=== PATIENT | male | born 1935 ===

== ENCOUNTER 2019-11-26 20:10 | Emergency (ER) | payer MEDICARE ==
[~2019-11-26] VITALS: Ht 165.1 cm; Wt 86.2 kg
[2019-11-26 20:59] LABS: Hematocrit 37.6 % (37.0-53.0); Hemoglobin 12.8 g/dL (13.5-17.5); Mean Corpuscular HGB 30.5 pg (26.0-34.0); Mean Corpuscular Volume 90 fL (80-100); Mean Platelet Volume 9.9 fL (9.1-12.4); Platelet Count 210 K/mm3 (150-400); RDW Coefficient Variation 12.1 % (11.7-14.2); RDW Standard Deviation 39.8 fL (35.1-46.3); Red Blood Cell Count 4.19 M/mm3 (4.30-5.90); White Blood Cell Count 8.63 K/mm3 (4.00-11.30)
[2019-11-26 21:16] LABS: Alanine Aminotransfer (ALT/SGP 72 U/L (12-78); Albumin, Blood 3.4 g/dL (3.4-5.0); Albumin/Globulin Ratio 0.6 (0.8-1.8); Alk Phos 109 U/L (50-136); Anion Gap 4 mmol/L (6-16); Aspartate Aminotrans (AST/SGOT 44 U/L (12-37); Bilirubin, Total 0.3 mg/dL (0.1-1.0); Blood Urea Nitrogen 17 mg/dL (8-24); Bun/Creatinine Ratio 14.4 (12.0-20.0); CO2, Blood 29 mmol/L (21-32); Calcium, Blood 8.4 mg/dL (8.5-10.1); Chloride, Blood 100 mmol/L (98-108); Creatinine, Blood 1.18 mg/dL (0.60-1.20); Dilantin (Phenytoin), Total 7.9 ug/mL (10.0-20.0); Globulin, Blood 5.3 g/dL (2.2-4.0); Glomerular Filtration Rate >60 (60-); Glucose, Blood 230 mg/dL (70-99); Potassium, Blood 4.5 mmol/L (3.5-5.5); Sodium, Blood 133 mmol/L (136-145); Total Protein, Blood 8.7 g/dL (6.4-8.2)
[2019-11-26 21:22] LABS: BASOPHILS PERCENT MAN 0 % (0-2); EOSINOPHILS PERCENT MAN 0 % (0-6); LYMPHOCYTES ABSOLUTE MAN 2.24 K/mm3 (0.84-5.20); LYMPHOCYTES PERCENT MAN 26 % (21-46); MONOCYTES PERCENT MAN 7 % (4-13); NEUTROPHILS ABSOLUTE MAN 5.78 K/mm3 (1.96-9.15); SEG NEUTROPHILS PERCENT MAN 67 % (41-73); TOTAL CELLS COUNTED 100
== END 2019-11-26 23:44 | disposition home or self-care (01) ==
LOC: ER 20:10
PROVIDERS: Emergency Medicine
DX: G40.909 Epilepsy, unspecified, not intractable, without status epilepticus (principal); S09.90XA Unspecified injury of head, initial encounter; W19.XXXA Unspecified fall, initial encounter
CPT/HCPCS: 36415; 70450; 80053; 80185; 85025; 99284-25

== ENCOUNTER 2020-06-17 11:50 | Emergency (ER) | payer MEDICARE ==
[~2020-06-17] VITALS: Ht 162.6 cm; Wt 81.7 kg
[2020-06-17] MEDS ORDERED: CITALOPRAM HBR40 MG PO (12:29)
[2020-06-17] MEDS ORDERED: HYDROCHLOROTH12.5 MG PO (12:29)
[2020-06-17] MEDS ORDERED: TAMSULOSIN HCL0.4 M1 PO (12:29)
[2020-06-17] MEDS ORDERED: ATORVASTATIN CA40 M1 PO (12:29)
[2020-06-17] MEDS ORDERED: AMLODIPINE BESY10 MG PO (12:30)
[2020-06-17] MEDS ORDERED: CLONAZEPAM1 MG PO (12:30)
[2020-06-17] MEDS ORDERED: PHENYTOIN SODI100 MG PO (12:30)
[2020-06-17] MEDS ORDERED: LOSA50 PO (12:30)
[2020-06-17 12:41] LABS: Alanine Aminotransfer (ALT/SGP 33 U/L (12-78); Albumin, Blood 3.9 g/dL (3.4-5.0); Albumin/Globulin Ratio 0.9 (0.8-1.8); Alk Phos 85 U/L (50-136); Anion Gap 7 mmol/L (6-16); Aspartate Aminotrans (AST/SGOT 25 U/L (12-37); Bilirubin, Total 0.5 mg/dL (0.1-1.0); Blood Urea Nitrogen 16 mg/dL (8-24); Bun/Creatinine Ratio 18.6 (12.0-20.0); CO2, Blood 24 mmol/L (21-32); Calcium, Blood 8.3 mg/dL (8.5-10.1); Chloride, Blood 105 mmol/L (98-108); Creatinine, Blood 0.86 mg/dL (0.60-1.20); Globulin, Blood 4.3 g/dL (2.2-4.0); Glomerular Filtration Rate >60 (60-); Glucose, Blood 165 mg/dL (70-99); Hematocrit 35.5 % (37.0-53.0); Hemoglobin 12.5 g/dL (13.5-17.5); Mean Corpuscular HGB 30.6 pg (26.0-34.0); Mean Corpuscular HGB Conc 35.2 g/dL (31.5-36.5); Mean Corpuscular Volume 87 fL (80-100); Potassium, Blood 4.2 mmol/L (3.5-5.5); RDW Coefficient Variation 12.8 % (11.7-14.2); Red Blood Cell Count 4.09 M/mm3 (4.30-5.90); Sodium, Blood 136 mmol/L (136-145); Total Protein, Blood 8.2 g/dL (6.4-8.2); Troponin I <0.015 ng/mL (0.000-0.040); White Blood Cell Count 7.85 K/mm3 (4.00-11.30)
[2020-06-17 12:42] LABS: Platelet Count 227 K/mm3 (150-400)
[2020-06-17 12:59] LABS: BASOPHILS ABSOLUTE MAN 0.07 K/mm3 (0.00-0.23); BASOPHILS PERCENT MAN 1 % (0-2); EOSINOPHILS ABSOLUTE MAN 0.07 K/mm3 (0.00-0.68); EOSINOPHILS PERCENT MAN 1 % (0-6); LYMPHOCYTES ABSOLUTE MAN 3.29 K/mm3 (0.84-5.20); LYMPHOCYTES PERCENT MAN 42 % (21-46); MONOCYTES ABSOLUTE MAN 1.02 K/mm3 (0.16-1.47); MONOCYTES PERCENT MAN 13 % (4-13); NEUTROPHILS ABSOLUTE MAN 3.37 K/mm3 (1.96-9.15); SEG NEUTROPHILS PERCENT MAN 43 % (41-73); TOTAL CELLS COUNTED 100
[2020-06-17] MEDS ORDERED: CODACE30 PO (15:56)
== END 2020-06-17 16:14 | disposition home or self-care (01) ==
LOC: ER 11:50
PROVIDERS: Emergency Medicine
DX: S82.61XA Displaced fracture of lateral malleolus of right fibula, initial encounter for closed fracture (principal); E11.9 Type 2 diabetes mellitus without complications; Z79.899 Other long term (current) drug therapy; Z91.81 History of falling; W18.30XA Fall on same level, unspecified, initial encounter
CPT/HCPCS: 29515; 36415; 73562-LT; 73590; 73610; 80053; 84484; 85025; 93005; 93010; 99284-25; A9270

== ENCOUNTER 2022-11-14 17:18 | Emergency (ER) | payer MEDICARE ==
[~2022-11-14] VITALS: Ht 165.1 cm; Wt 81.7 kg
[~2022-11-14 17:18] MED LIST: AMLODIPINE BESY10 MG PO; ATORVASTATIN CA40 M1 PO; CITALOPRAM HBR40 MG PO; CLONAZEPAM1 MG PO; CODACE30 PO; HYDROCHLOROTH12.5 MG PO; LOSA50 PO; PHENYTOIN SODI100 MG PO; TAMSULOSIN HCL0.4 M1 PO
[2022-11-14 19:37] VITALS: BP 137/95
[2022-11-14] MEDS ORDERED: Percocet 5-3251 EACH PO (20:02)
[2022-11-21] MEDS ORDERED: NOVOLOG100 UNIT/2 (08:12)
[2022-11-21] MEDS ORDERED: ACET500 (08:16)
== END 2022-11-14 20:53 | disposition home or self-care (01) ==
LOC: ER 17:18
DX: S52.592A Other fractures of lower end of left radius, initial encounter for closed fracture (principal); S52.692A Other fracture of lower end of left ulna, initial encounter for closed fracture; E11.9 Type 2 diabetes mellitus without complications; W18.30XA Fall on same level, unspecified, initial encounter; Z79.899 Other long term (current) drug therapy
CPT/HCPCS: 25605; 73110; 93005; 93010; 96374-59; 96375-59; 99284-25; A9270; J1885; J3010; J7030

== ENCOUNTER 2023-12-19 13:06 | Emergency (ER) | payer MEDICARE ==
[~2023-12-19] VITALS: Ht 170.2 cm; Wt 72.6 kg
[~2023-12-19 13:06] MED LIST changes: -ALBU90OI INH; -AMOCLA875 PO; -AZIT250 PO; -BENZ100A PO; -GUAI600T33 PO
[2023-12-19 14:30] VITALS: BP 143/65
[2023-12-19] MEDS ORDERED: AZIT250 PO (15:03)
[2023-12-19] MEDS ORDERED: ALBU90OI INH (15:03)
[2023-12-19] MEDS ORDERED: BENZ100A PO (15:03)
[2023-12-19] MEDS ORDERED: GUAI600T33 PO (15:03)
[2023-12-19] MEDS ORDERED: AMOCLA875 PO (15:03)
== END 2023-12-19 15:22 | disposition home or self-care (01) ==
LOC: ER 13:06
DX: J06.9 Acute upper respiratory infection, unspecified (principal); G40.909 Epilepsy, unspecified, not intractable, without status epilepticus; E78.00 Pure hypercholesterolemia, unspecified; R05.9 Cough, unspecified; R06.00 Dyspnea, unspecified; Z74.09 Other reduced mobility; Z79.899 Other long term (current) drug therapy; Z79.4 Long term (current) use of insulin; E11.9 Type 2 diabetes mellitus without complications
CPT/HCPCS: 71046; 80053; 83880; 84484; 85025; 93005; 93010; 99285-25

== ENCOUNTER → 2023-12-19 | Outpatient (CLI) | payer MEDICARE ==
[~2023-12-19] MED LIST changes: +ACET500; +ALBU90OI INH; +AMOCLA875 PO; +AZIT250 PO; +BENZ100A PO; +GUAI600T33 PO; +NOVOLOG100 UNIT/2; +Percocet 5-3251 EACH PO
[2023-12-19 11:41] LABS: BASOPHILS ABSOLUTE AUTO 0.01 K/mm3 (0.00-0.23); BASOPHILS PERCENT AUTO 0 % (0-2); EOSINOPHILS ABSOLUTE AUTO 0.01 K/mm3 (0.00-0.68); EOSINOPHILS PERCENT AUTO 0 % (0-6); Hematocrit 33.4 % (37.0-53.0); Hemoglobin 11.6 g/dL (13.5-17.5); IMMATURE GRAN ABSOLUTE AUTO 0.64 K/mm3 (0.00-0.10); IMMATURE GRAN PERCENT AUTO 6 % (0-1); LYMPHOCYTES ABSOLUTE AUTO 2.09 K/mm3 (0.84-5.20); LYMPHOCYTES PERCENT AUTO 19 % (21-46); MONOCYTES ABSOLUTE AUTO 2.35 K/mm3 (0.16-1.47); MONOCYTES PERCENT AUTO 22 % (4-13); Mean Corpuscular HGB 30.6 pg (26.0-34.0); Mean Corpuscular HGB Conc 34.7 g/dL (31.5-36.5); Mean Corpuscular Volume 88 fL (80-100); Mean Platelet Volume 9.3 fL (9.1-12.4); NEUTROPHILS ABSOLUTE AUTO 5.72 K/mm3 (1.96-9.15); NEUTROPHILS PERCENT AUTO 53 % (41-73); Platelet Count 183 K/mm3 (150-400); RDW Coefficient Variation 12.6 % (11.7-14.2); RDW Standard Deviation 40.6 fL (35.1-46.3); Red Blood Cell Count 3.79 M/mm3 (4.30-5.90); White Blood Cell Count 10.82 K/mm3 (4.00-11.30)
[2023-12-19 11:52] LABS: Albumin, Blood 3.7 g/dL (3.4-5.0); Albumin/Globulin Ratio 0.8 (0.8-1.8); Bilirubin, Total 0.4 mg/dL (0.1-1.0); Bun/Creatinine Ratio 18.7 (12.0-20.0); Calcium, Blood 8.2 mg/dL (8.5-10.1); Creatinine, Blood 1.23 mg/dL (0.60-1.20); Globulin, Blood 4.7 g/dL (2.2-4.0); Total Protein, Blood 8.4 g/dL (6.4-8.2)
[2023-12-19 12:02] LABS: BAND PERCENT MAN 6 % (0-8); BASOPHILS PERCENT MAN 0 % (0-2); EOSINOPHILS PERCENT MAN 0 % (0-6); LYMPHOCYTES PERCENT MAN 12 % (21-46); MONOCYTES PERCENT MAN 19 % (4-13); SEG NEUTROPHILS PERCENT MAN 63 % (41-73); TOTAL CELLS COUNTED 100
== END | disposition home or self-care (01) ==
LOC: LAB SHORT 11:36 → LAB 11:36
PROVIDERS: Emergency Medicine
DX: R06.00 Dyspnea, unspecified (principal)
CPT/HCPCS: 80053; 84484; 85025

== ENCOUNTER 2024-05-12 13:11 | Inpatient (IN) | payer MEDICARE ==
[~2024-05-12] VITALS: Ht 167.6 cm; Wt 77.6 kg
[2024-05-12] VITALS (13 sets, daily range): BP systolic 108–151; BP diastolic 51–110
[~2024-05-12 13:11] MED LIST changes: +ALBU90OI INH; +AMOCLA875 PO; +AZIT250 PO; +BENZ100A PO; +GUAI600T33 PO
[2024-05-12 14:20] LABS: Base Excess Venous 1.6 mmol/L; Bicarbonate Venous 25.6 mmol/L (24.0-30.0); PCO2 Venous 43.5 mmHg (38-42); pH Blood Venous 7.39 (7.34-7.37)
[2024-05-12] MEDS ORDERED: NS 1,000 ML IV SCH ×2 (14:25→16:25)
[2024-05-12 14:31] LABS: Hematocrit 33.3 % (37.0-53.0); Hemoglobin 11.8 g/dL (13.5-17.5); Mean Corpuscular HGB 30.5 pg (26.0-34.0); Mean Corpuscular HGB Conc 35.4 g/dL (31.5-36.5); Mean Corpuscular Volume 86 fL (80-100); Mean Platelet Volume 10.8 fL (9.1-12.4); Platelet Count 251 K/mm3 (150-400); RDW Coefficient Variation 12.5 % (11.7-14.2); RDW Standard Deviation 39.4 fL (35.1-46.3); Red Blood Cell Count 3.87 M/mm3 (4.30-5.90); White Blood Cell Count 8.83 K/mm3 (4.00-11.30)
[2024-05-12 14:56] LABS: BAND PERCENT MAN 9 % (0-8); BASOPHILS PERCENT MAN 0 % (0-2); EOSINOPHILS PERCENT MAN 0 % (0-6); LYMPHOCYTES ABSOLUTE MAN 1.85 K/mm3 (0.84-5.20); LYMPHOCYTES PERCENT MAN 21 % (21-46); METAMYELOCYTE ABSOLUTE MAN 0.08 K/mm3 (0.00-0.00); METAMYELOCYTE PERCENT MAN 1 % (0-0); MONOCYTES ABSOLUTE MAN 0.88 K/mm3 (0.16-1.47); MONOCYTES PERCENT MAN 10 % (4-13); MYELOCYTE ABSOLUTE MAN 0.17 K/mm3 (0.00-0.00); MYELOCYTE PERCENT MAN 2 % (0-0); NEUTROPHILS ABSOLUTE MAN 5.82 K/mm3 (1.96-9.15); SEG NEUTROPHILS PERCENT MAN 57 % (41-73); TOTAL CELLS COUNTED 100
[2024-05-12 15:03] LABS: Albumin, Blood 3.8 g/dL (3.4-5.0); Albumin/Globulin Ratio 0.9 (0.8-1.8); Bilirubin, Total 0.3 mg/dL (0.1-1.0); Bun/Creatinine Ratio 21.6 (12.0-20.0); Calcium, Blood 8.5 mg/dL (8.5-10.1); Creatinine, Blood 1.34 mg/dL (0.60-1.20); Globulin, Blood 4.3 g/dL (2.2-4.0); Potassium, Blood 5.6 mmol/L (3.5-5.5); Total Protein, Blood 8.1 g/dL (6.4-8.2)
[2024-05-12] MEDS ORDERED: Lactated Ringer's 2,000 ML IV ONE (16:00)
[2024-05-12] MEDS ORDERED: Insulin Human Regular 100 UNIT in NS 100 ML IV SCH (16:00)
[2024-05-12] MEDS ORDERED: Metoclopramide HCl 5MG / ML 2ML Vial IV PRN (16:20)
[2024-05-12] MEDS ORDERED: Ondansetron 4 MG TAB PO PRN (16:20)
[2024-05-12] MEDS ORDERED: FLU VACC TS2024-25(6MOS UP)/PF 45 MCG/0.5 ML SYRINGE IM SCH (16:20)
[2024-05-12] MEDS ORDERED: Ondansetron HCl 2 MG / ML 2ML Vial IV PRN (16:20)
[2024-05-12 16:38] LABS: Glucose, Blood 734 mg/dL (70-99)
[2024-05-12] MEDS ORDERED: CefTRIAXone Sodium 1,000 MG in NS 100 ML IV SCH (18:51)
[2024-05-12 19:04] LABS: Source, Urine Straight Cath
[2024-05-12 19:08] LABS: Appearance, Urine Clear (Clear); Bilirubin, Urine Neg (Neg); Blood, Urine 1+ (Neg); Glucose Qualitative, Urine 4+ (Neg); Ketones, Urine Neg (Neg); Leukocyte Esterase, Urine Neg (Neg); Nitrite, Urine Neg (Neg); Protein, Urine Neg (Neg); Specific Gravity, Urine 1.005 (1.003-1.022); Urobilinogen, Urine NORM (Normal)
[2024-05-12 19:13] LABS: Dilantin (Phenytoin), Total 1.3 ug/mL (10.0-20.0)
[2024-05-12 19:13] LABS: Color, Urine Pale Yellow (P-Yellow)
[2024-05-12 19:15] LABS: White Blood Cells, Urine 0-2 /hpf (0-5)
[2024-05-12 19:16] LABS: Bacteria Rare /hpf; Squamous Epithelial Cells Rare /hpf (Few); Yeast/Fungi Urine Few /hpf
[2024-05-12 19:21] LABS: Glucose, Blood 652 mg/dL (70-99)
[2024-05-12] MEDS ORDERED: METFORMIN HCL500 M3 PO (19:32)
[2024-05-12] MEDS ORDERED: Aspir 8181 MG PO (19:33)
[2024-05-12 20:33] LABS: Bun/Creatinine Ratio 22.9 (12.0-20.0); Calcium, Blood 8.7 mg/dL (8.5-10.1); Creatinine, Blood 1.05 mg/dL (0.60-1.20); Potassium, Blood 4.4 mmol/L (3.5-5.5)
[2024-05-12] MEDS ORDERED: Famotidine 10 MG/ML 2ML Vial IV SCH (21:00)
[2024-05-12] MEDS ORDERED: Citalopram Hydrobromide 20 MG Tab PO SCH (21:00)
[2024-05-12] MEDS ORDERED: Insulin Isoph 70 / Reg 30 100 Unit/ML 10ML Vial SC SCH (21:30)
[2024-05-12] MEDS ORDERED: ClonazePAM 1 MG Tab PO SCH (21:40)
--- NOTE | 2024-05-12 22:34 | NUR ---
PATIENT TO ICU 14 FROM ER AT APPROX 1915, PATIENT SLIGHTLY CONFUSED ON ARRIVAL. NOW ALERT AND ORIENTED X4. SP02 96% ON RA, DENIES SOB. HR SR 90s, BP STABLE. DENIES CP/PRESSURE. WENT FOR REPEAT CT. INSULIN OFF AND HOME INSULING GIVEN, SEE EMAR. PATIENT CURRENTLY EATING. USES URINAL. CALL LIGHT IN REACH. SEE ASSESSMENT FOR MORE INFORMATION
[2024-05-13] VITALS (15 sets, daily range): BP systolic 121–148; BP diastolic 54–132
[2024-05-13 03:45] LABS: BASOPHILS ABSOLUTE AUTO 0.02 K/mm3 (0.00-0.23); BASOPHILS PERCENT AUTO 0 % (0-2); EOSINOPHILS ABSOLUTE AUTO 0.02 K/mm3 (0.00-0.68); EOSINOPHILS PERCENT AUTO 0 % (0-6); Hematocrit 30.9 % (37.0-53.0); Hemoglobin 11.2 g/dL (13.5-17.5); IMMATURE GRAN ABSOLUTE AUTO 0.27 K/mm3 (0.00-0.10); IMMATURE GRAN PERCENT AUTO 3 % (0-1); LYMPHOCYTES ABSOLUTE AUTO 3.04 K/mm3 (0.84-5.20); LYMPHOCYTES PERCENT AUTO 31 % (21-46); MONOCYTES ABSOLUTE AUTO 1.92 K/mm3 (0.16-1.47); MONOCYTES PERCENT AUTO 20 % (4-13); Mean Corpuscular HGB 30.5 pg (26.0-34.0); Mean Corpuscular HGB Conc 36.2 g/dL (31.5-36.5); Mean Corpuscular Volume 84 fL (80-100); Mean Platelet Volume 10.3 fL (9.1-12.4); NEUTROPHILS ABSOLUTE AUTO 4.59 K/mm3 (1.96-9.15); NEUTROPHILS PERCENT AUTO 47 % (41-73); Platelet Count 227 K/mm3 (150-400); RDW Coefficient Variation 12.3 % (11.7-14.2); RDW Standard Deviation 37.5 fL (35.1-46.3); Red Blood Cell Count 3.67 M/mm3 (4.30-5.90); White Blood Cell Count 9.86 K/mm3 (4.00-11.30)
[2024-05-13 04:17] LABS: Albumin, Blood 3.2 g/dL (3.4-5.0); Albumin/Globulin Ratio 0.9 (0.8-1.8); Bilirubin, Total 0.3 mg/dL (0.1-1.0); Bun/Creatinine Ratio 21.5 (12.0-20.0); Calcium, Blood 8.4 mg/dL (8.5-10.1); Creatinine, Blood 0.98 mg/dL (0.60-1.20); Globulin, Blood 3.7 g/dL (2.2-4.0); Potassium, Blood 4.1 mmol/L (3.5-5.5); Total Protein, Blood 6.9 g/dL (6.4-8.2)
--- NOTE | 2024-05-13 05:22 | NUR ---
SHIFT SUMMARY PATIENT CONFUSED AT TIMES, MORE SO WHEN WAKING UP. ORIENTED X4 WHEN ASKED ORIENTATION QUESTIONS. SP02 94% ON RA. HR SR 80s. BP STABLE, DENIES CP/PRESSURE. INSULIN DRIP OFF LAST NIGHT, SEE FLOW SHEET. PATIENT ABLE TO EAT AND TOLERATE PO FLUIDS. CONDOM CATH PLACED DUE TO INCONTINENCE AT TIMES. PATIENT ABLE TO REPOSITON SELF IN BED. CALL LIGHT IN REACH AND BED ALARM ON.
[2024-05-13] MEDS ORDERED: Insulin Human Lispro 100 Units/ML 3ML Syringe SC SCH ×2 (07:30→21:00)
[2024-05-13] MEDS ORDERED: Insulin Isoph 70 / Reg 30 100 Unit/ML 10ML Vial SC ONE (08:30)
[2024-05-13] MEDS ORDERED: Insulin Isoph 70 / Reg 30 100 Unit/ML 10ML Vial SC SCH ×2 (09:00→21:00)
[2024-05-13] MEDS ORDERED: Heparin Sodium 5000 Units/ML 1ML MDV SC SCH (09:00)
[2024-05-13] MEDS ORDERED: Insulin Human Lispro 100 Units/ML 3ML Syringe SC ONE (17:05)
--- NOTE | 2024-05-13 18:43 | NUR ---
SHIFT SUMMARY NEURO: PT ALERT AND ORIENTED X2/3 DEPENDING. REQUIRED SOME REMINDING ABOUT SITUATION. MAKES NEEDS KNOWN, OBEYS COMMANDS. BEGAN TO PICK AT IVS AND TRY TO REMOVE BP CUFF AND TELE CORDS IN THE EARLY EVENING BUT WAS REDIRECTABLE. CARDIO: BP STABLE IN 140'S, HR 90'S-100'S, SR. PT DENIES CHEST PAIN/PRESSURE/SOB. RESP: ON RA, SATTING ABOVE 90%. GI/: NO BM SINCE ADMIT LAST NIGHT. PT HAD CONDOM CATHETER IN PLACE AND SOMETIMES FORGETS AND NEEDS TO BE REMINDED. PT SEEN BY PT TODAY. SEE RECOMMENDATION. BLOOD GLUCOSE 90'S-290'S TODAY. SEE NEW ORDERS. PT NOW MEDICAL STATUS WITH NO TELE. GRANDSON BROUGHT IN ADVANCED DIRECTIVE, SEE CHART.
[2024-05-13] MEDS ORDERED: Insulin NPH 100 Unit / ML 10ML Vial SC SCH ×2 (21:00)
--- NOTE | 2024-05-13 21:19 | NUR ---
ASSUMED CARE AT 1900 PATIENT IS ALERT AND ORIENTED X4, CAN BE FORGETFUL AND NEED REDIRECTION AT TIMES. SP02 98% ON RA, DENIES SOB. HR SR 90s, BP STABLE, DENIES CP/PRESSURE. UP TO TOILET MULTIPLE TIMES ALTHOUGH HAVING INCONTINENCE OF URINE STILL, MALE PUREWICK PLACED. PATIENT ABLE TO MOVE SELF IN BED. CALL LIGHT IN REACH
[2024-05-14 03:01] VITALS: BP 151/71
--- NOTE | 2024-05-14 03:06 | NUR ---
TRANSFER SUMMARY: PT TRANSFERRED FROM ICU TO MED FLOOR. TOA: 0256. AMBULATED FROM WHEELCHAIR INTO BED. CONFUSED, REDIRECTABLE. NO PRESSURE WOUNDS, SOME SMALL SCABS ON HIS LEGS. COMPLIANT WITH CARE. ATTEMPTED TO ORIENT TO ROOM. BED IN LOWEST POSITION AND CALL LIGHT IN REACH. CONTINUING CARE.
--- NOTE | 2024-05-14 04:35 | NUR ---
SHIFT SUMMARY: PT AOX1 TO SELF. CONFUSED AND IMPULSIVE. SITTER FROM ICU AT BEDSIDE. ATTEMPTS TO REMOVE CLOTHES AND ATTENDS, BUT IS REDIRECTABLE. IN AND OUT OF SLEEP. PT IS SOMEWHAT REDIRECTABLE AND NOT AGGRESSIVE BUT HARD TO KEEP ON TRACK. DENIES PAIN AND DISCOMFORT. PT CURRENTLY SLEEPING, BED IN LOWEST POSITION, CALL LIGHT IN REACH. CONTINUING CARE.
[2024-05-14 07:15] VITALS: BP 151/69
[2024-05-14] MEDS ORDERED: Insulin Isoph 70 / Reg 30 100 Unit/ML 10ML Vial SC SCH (09:00)
[2024-05-14] MEDS ORDERED: Insulin NPH 100 Unit / ML 10ML Vial SC ONE (11:45)
[2024-05-14] MEDS ORDERED: AMLO10 PO (12:48)
[2024-05-14] MEDS ORDERED: HUMALOG KW100 UNIT/1 SC (12:59)
[2024-05-14] MEDS ORDERED: HUMULIN N100 UNIT/6 SC (13:49)
--- NOTE | 2024-05-14 14:45 | NUR ---
DISCHARGE PATIENT A&OX4, COOPERATIVE T/O SHIFT. NO ACUTE EVENTS. ABLE TO COMMUNICATE NEEDS WELL. FORGETFUL AT TIMES. DENIED ANY CP/PRESSURE, HEADACHE, DIZZINESS, OR SOB. BILATERAL IV'S REMOVED. PAPER SCRUB PANTS PROVIDED FOR PATIENT TO WEAR. DISCHARGE PACKET AND EDUCATION REVIEWED WITH CARLOS BLANC. DENIED ANY QUESTIONS OR CONCERNS. [facility] CALLED NEEDING MORE PRECISE RX INFORMATION. VERIFIED WITH LUCIANAANI AND CORRECTED RX INFORMATION. CARLOS REPORTED PATIENT HAS A GLUCOMETER AND NEW STRIPS AT HOME. PATIENT WHEELED OUT AT 1435.
== END 2024-05-14 14:37 | disposition home or self-care (01) | DRG 638 ==
LOC: ER 13:11 → ICUE 15:59 → MEDS 05-14 03:35 → ENPENDDIS 05-14 13:05 → MEDS 05-14 14:37
PROVIDERS: Nurse Practitioner Acute Care; Student in an Organized Health Care Education/Training Program; ADMIT Internal Medicine
DX: E11.00 Type 2 diabetes mellitus with hyperosmolarity without nonketotic hyperglycemic-hyperosmolar coma (NKHHC) (principal); E87.1 Hypo-osmolality and hyponatremia; N17.9 Acute kidney failure, unspecified; E87.3 Alkalosis; Z66 Do not resuscitate; R62.7 Adult failure to thrive; Z68.27 Body mass index [BMI] 27.0-27.9, adult; G40.909 Epilepsy, unspecified, not intractable, without status epilepticus; E78.5 Hyperlipidemia, unspecified; I10 Essential (primary) hypertension; E86.0 Dehydration; Z91.148 Patient's other noncompliance with medication regimen for other reason; E87.5 Hyperkalemia; Z79.899 Other long term (current) drug therapy; Z79.4 Long term (current) use of insulin; R33.9 Retention of urine, unspecified; Z79.82 Long term (current) use of aspirin
CPT/HCPCS: 36415; 70450; 80048; 80053; 80185; 81001; 82010; 82550; 82803; 82947; 85025; 93005; 93010; 96360; 97116; 97162; 97530; A9270; J0696; J1644; J1815; J7030; J7120